=== PATIENT | female | born 1975 | race Caucasian/White ===

== ENCOUNTER 2020-03-14 14:35 | Emergency (ER) | payer OTHER ==
[~2020-03-14] VITALS: Ht 167.6 cm; Wt 72.6 kg
[2020-03-14] MEDS ORDERED: WELLBUTRIN SR150 MG (14:52)
[2020-03-14] MEDS ORDERED: CLONAZEPAM0.5 MG (14:53)
== END 2020-03-14 23:34 | disposition home or self-care (01) ==
LOC: ER 14:35
DX: T76.21XA Adult sexual abuse, suspected, initial encounter (principal); S30.23XA Contusion of vagina and vulva, initial encounter; R10.2 Pelvic and perineal pain; F41.8 Other specified anxiety disorders; F43.25 Adjustment disorder with mixed disturbance of emotions and conduct; Y07.59 Other non-family member, perpetrator of maltreatment and neglect